=== PATIENT | female | born 1980 | race Caucasian/White ===

== ENCOUNTER → 2018-05-25 | Outpatient (CLI) | payer OTHER | LOC: FIMAGING 08:18 | PROVIDERS: ATTEND Obstetrics & Gynecology | DX: O09.813 Supervision of pregnancy resulting from assisted reproductive technology, third trimester (principal); O09.523 Supervision of elderly multigravida, third trimester; O14.93 Unspecified pre-eclampsia, third trimester; Z3A.36 36 weeks gestation of pregnancy ==